=== PATIENT | female | born 1965 | race Caucasian/White ===

== ENCOUNTER 2017-08-18 11:38 | Emergency (ER) | payer OTHER ==
[~2017-08-18] VITALS: Ht 172.7 cm; Wt 73.9 kg
[2017-08-18 11:51] VITALS: BP 143/80
[2017-08-18 14:44] VITALS: BP 143/80
== END 2017-08-18 14:46 | disposition home or self-care (01) ==
LOC: MED 11:38
DX: N39.0 Urinary tract infection, site not specified (principal); L20.9 Atopic dermatitis, unspecified; E78.00 Pure hypercholesterolemia, unspecified
CPT/HCPCS: 99283

== ENCOUNTER 2017-10-07 13:36 | Emergency (ER) | payer OTHER ==
[~2017-10-07] VITALS: Ht 165.1 cm; Wt 79.4 kg
[2017-10-07 14:06] VITALS: BP 135/67
--- NOTE | 2017-10-07 14:27 | NUR ---
Patient to bed 01.
--- NOTE | 2017-10-07 14:28 | NUR ---
52/F BIB SISTER C/O RASHES & SWELLING TO R ABDOMEN, LOWER ABDOMEN , LFA & C/O COUGH , RUNNY NOSE & SORE THROAT X YESTERDAY. HX HYPERLIPIDEMIA, SURGERY TO RFA, HYSTERECTOMY. DENIES N/V/D; SKIN IS PINK/WARM/DRY; AAOX4 WITH EVEN AND STEADY GAIT; LUNGS CLEAR BL; PATIENT STATES PAIN OF 0/10 AT THIS TIME; PATIENT POSITIONED FOR COMFORT; HOB ELEVATED; BEDRAILS UP X2; BED DOWN. ER MD MADE AWARE OF PT STATUS.
[2017-10-07 15:19] VITALS: BP 106/72
--- NOTE | 2017-10-07 15:19 | NUR ---
Patient discharged with v/s stable. Written and verbal after care instructions given and explained. Patient alert, oriented and verbalized understanding of instructions. Ambulatory with steady gait. All questions addressed prior to discharge. ID band removed. Patient advised to follow up with PMD. Rx of KEFLEX,DIPHENHYDRALAMINE given. Patient educated on indication of medication including possible reaction and side effects. Opportunity to ask questions provided and answered.
== END 2017-10-07 15:19 | disposition home or self-care (01) ==
LOC: MED 13:36
DX: L03.311 Cellulitis of abdominal wall (principal)
CPT/HCPCS: 99283

== ENCOUNTER 2017-10-17 11:32 | Emergency (ER) | payer OTHER ==
[~2017-10-17] VITALS: Ht 167.6 cm; Wt 78.0 kg
[2017-10-17 11:59] VITALS: BP 119/66
--- NOTE | 2017-10-17 12:08 | NUR ---
Patient ambulated to bed 02.
--- NOTE | 2017-10-17 12:25 | NUR ---
PATIENT PRESENTS TO ED WITH C/O DIZZINESS FOR A COUPLE OF DAYS; DENIES N/V DENIES; RECURRING FIRM RAISED REDNESS AREAS/RASH , LEFT THIGH , LOWER BACK PAIN FOR 2 DAYS, HX OF HYPERLIPIDEMIA;HYSTERECTOMY;RX OF SIMVASTATING . SKIN IS PINK/WARM/DRY; AAOX4 WITH EVEN AND STEADY GAIT; LUNGS CLEAR BL; HR EVEN AND REGULAR; PT DENIES ANY FEVER, CP, SOB, OR COUGH AT THIS TIME; PATIENT STATES PAIN OF 0/10 AT THIS TIME;PATIENT POSITIONED FOR COMFORT; HOB ELEVATED; BEDRAILS UP X2; BED DOWN. ER MD MADE AWARE OF PT STATUS.
--- NOTE | 2017-10-17 12:40 | NUR ---
Dr. Ochoa evaluating patient at bedside.
[2017-10-17 12:52] VITALS: BP 129/80
--- NOTE | 2017-10-17 12:52 | NUR ---
Note undone in EDM - 10/17/17 at 1254 by MILA Patient discharged with v/s stable. Written and verbal after care instructions given and explained. Patient alert, oriented and verbalized understanding of instructions. Ambulatory with steady gait. All questions addressed prior to discharge. ID band removed. Patient advised to follow up with PMD. Rx of PREDNISONE, CIPRO AND BENADRYL given. Patient educated on indication of medication including possible reaction and side effects. Opportunity to ask questions provided and answered.
== END 2017-10-17 12:52 | disposition home or self-care (01) ==
LOC: MED 11:32
DX: R21 Rash and other nonspecific skin eruption (principal); N39.0 Urinary tract infection, site not specified; E78.5 Hyperlipidemia, unspecified; Z90.710 Acquired absence of both cervix and uterus
CPT/HCPCS: 81002; 81025; 99283

== ENCOUNTER 2019-06-11 10:24 | Emergency (ER) | payer MEDICAID, OTHER ==
[~2019-06-11] VITALS: Ht 172.7 cm; Wt 73.9 kg
[2019-06-11 10:32] VITALS: BP 136/84
--- NOTE | 2019-06-11 11:10 | NUR ---
C/O RIGHT ARM PAIN RADIATING FROM R ELBOW TO R WRIST X YESTERDAY. PT STATES SHE WAS HELPING HER DAUGHTER MOVE YESTERDAY AND SHE THINKS SHE MAY HAVE INJURED HER ARM IN THE PROCESS. PT IS UNABLE TO FULLY EXTEND HER R ARM DUE TO PAIN, + CMS. 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 PT DENIES HEARING A POP OR CRACKING SOUND, NO BRUISING OR OBVIOUS DEFORMITY OTHER THAN THE LIMITED ROM. PT IN BED IN LOW POSITION, SIDE RAIL UP X1, FRIEND AT BEDSIDE
--- NOTE | 2019-06-11 11:24 | NUR ---
Dr. Adams is evaluating the patient at bedside.
[2019-06-11] MEDS ORDERED: MORPHINE SULFATE 4 MG/ML SYR IM ONE (11:35)
[2019-06-11] MEDS ORDERED: KETOROLAC 60 MG/2 ML VIAL IM ONE (11:35)
--- NOTE | 2019-06-11 13:01 | NUR ---
4 inch orthoglass used to apply posterior long arm splint to right arm. Large sling was adjust and applied to patient. PMSC's assessed and wnl
[2019-06-11 13:32] VITALS: BP 126/68
== END 2019-06-11 13:31 | disposition home or self-care (01) ==
LOC: MED 10:24
DX: M79.601 Pain in right arm (principal); G89.29 Other chronic pain; M06.9 Rheumatoid arthritis, unspecified
CPT/HCPCS: 29105; 73090; 96372; 99283; J1885; J2270

== ENCOUNTER 2019-08-08 18:58 | Emergency (ER) | payer MEDICAID ==
[~2019-08-08] VITALS: Ht 172.7 cm; Wt 78.6 kg
[2019-08-08 19:06] VITALS: BP 143/85
[2019-08-08 20:53] LABS: BASOPHILS % (AUTO) 0.3 % (0.0-2.0); EOSINOPHILS # (AUTO) 0.3 K/uL (0-0.4); EOSINOPHILS % (AUTO) 3.9 % (0.0-4.0); HEMOGLOBIN 13.9 g/dL (12.0-16.0); LYMPHOCYTES # (AUTO) 1.8 K/uL (2.5-16.5); LYMPHOCYTES % (AUTO) 26.2 % (20.5-51.1); MEAN CORPUSCULAR HEMOGLOBIN 30 pg (27-31); MEAN CORPUSCULAR HGB CONC 34 g/dL (33-37); MEAN CORPUSCULAR VOLUME 89.3 fL (80-94); MONOCYTES # (AUTO) 0.4 K/uL (0.8-1.0); MONOCYTES % (AUTO) 5.5 % (1.7-9.3); NEUTROPHILS # (AUTO) 4.4 K/uL (1.8-7.7); NEUTROPHILS % (AUTO) 64.1 % (42.2-75.2); PLATELET COUNT (AUTO) 205 K/uL (140-450); RED CELL DISTRIBUTION WIDTH 13.8 % (11.6-13.7); WHITE BLOOD COUNT (AUTO) 6.8 K/uL (4.8-10.8)
[2019-08-08 21:19] LABS: ANION GAP 11.9 (8-16); CARBON DIOXIDE 27.6 mmol/L (21-32); CREATININE 0.9 mg/dL (0.6-1.3); POTASSIUM 4.5 mmol/L (3.5-5.1)
[2019-08-08 21:26] LABS: ALBUMIN 3.6 g/dL (3.4-5.0)
[2019-08-08 22:22] LABS: APPEARANCE,URINE CLEAR (CLEAR); BILIRUBIN,URINE NEGATIVE (NEGATIVE); BLOOD, URINE NEGATIVE (NEGATIVE); COLOR,URINE YELLOW (YELLOW); LEUKOCYTE ESTERASE ,URINE NEGATIVE (NEGATIVE); NITRITE, URINE NEGATIVE (NEGATIVE); UGLUCOSE NEGATIVE (NEGATIVE)
[2019-08-08] MEDS ORDERED: FAMOTIDINE 20 MG/2 ML VIAL IVP ONE (22:45)
[2019-08-08] MEDS ORDERED: MORPHINE SULFATE 4 MG/ML SYR IVP ONE ×2 (22:45→23:25)
[2019-08-08] MEDS ORDERED: ONDANSETRON 4 MG/2 ML VIAL IVP ONE (23:25)
[2019-08-09 01:14] VITALS: BP 129/79
== END 2019-08-09 01:14 | disposition home or self-care (01) ==
LOC: MED 18:58
DX: R10.13 Epigastric pain (principal); K92.1 Melena; E78.00 Pure hypercholesterolemia, unspecified; M06.9 Rheumatoid arthritis, unspecified
CPT/HCPCS: 36415; 76705; 80053; 81003; 82150; 83690; 84703; 85025; 96374; 96375; 96376; 99284; J2270; J2405; J3490; Q0092

== ENCOUNTER 2019-10-06 22:12 | Emergency (ER) | payer MEDICAID ==
[~2019-10-06] VITALS: Ht 172.7 cm; Wt 78.5 kg
[2019-10-06 22:40] VITALS: BP 156/84
--- NOTE | 2019-10-06 22:52 | NUR ---
TAKEN TO BED 02 VIA WC. REQUIRES WC ASSIST FOR PAIN. ESTRELLA ANDREWS MADE AWARE.
--- NOTE | 2019-10-06 23:27 | NUR ---
54 Y/O FEMALE PRESENTS TO ED WITH ABDOMINAL PAIN 08/31. PT STATES PAIN STARTED 3 WEEKS AGO AND WORSENING SINCE. DENIES ANY N/V/D AND CONSTIPATION. BS ACTIVE X4 QUADRANTS. ABDOMINAL PAIN RADIATES TO RIGHT FLANK; PAIN ON PALPATION. PT TOOK MOTRIN YESTERDAY WITH NO RELIEF. PT STABLE. ERMD AWARE. WILL CONTINUE TO MONITOR.
[2019-10-06] MEDS ORDERED: KETOROLAC 15 MG/ML VIAL IM ONE (23:40)
--- NOTE | 2019-10-06 23:49 | NUR ---
PT TAKE TO XRAY
[2019-10-07] MEDS ORDERED: HYDROcodone/APAP 5/325 MG 1 TAB TAB PO ONE (02:35)
[2019-10-07 02:55] VITALS: BP 152/71
--- NOTE | 2019-10-07 02:55 | NUR ---
PT DISCHARGED WITH PAPERWORK. RX TRAMADOL. EDUCATED PT REGARDING MEDICATION AND S/E. EDUCATED PT REGARDING D/C DIAGNOSIS AND INSTRUCTIONS. PT VERBALIZED UNDERSTANDING OF TEACHING. TOLD PT TO FOLLOW UP WITH PCP AND WHEN TO RETURN TO ED. PT VSS. ABLE TO AMBULATE WITH SLOW STEADY GAIT. ALL QUESTIONS ANSWERED.
== END 2019-10-07 02:55 | disposition home or self-care (01) ==
LOC: MED 22:12
DX: M54.41 Lumbago with sciatica, right side (principal)
CPT/HCPCS: 72110; 73502; 96372; 99283; J1885

== ENCOUNTER 2019-10-28 10:45 | Emergency (ER) | payer MEDICAID ==
[~2019-10-28] VITALS: Ht 172.7 cm; Wt 80.5 kg
[2019-10-28 10:48] VITALS: BP 145/82
[2019-10-28 11:30] LABS: BASOPHILS % (AUTO) 0.3 % (0.0-2.0); EOSINOPHILS # (AUTO) 0.2 K/uL (0-0.4); EOSINOPHILS % (AUTO) 3.5 % (0.0-4.0); HEMATOCRIT 42.3 % (36-48); HEMOGLOBIN 13.9 g/dL (12.0-16.0); LYMPHOCYTES # (AUTO) 1.7 K/uL (2.5-16.5); LYMPHOCYTES % (AUTO) 30.1 % (20.5-51.1); MEAN CORPUSCULAR HEMOGLOBIN 30 pg (27-31); MEAN CORPUSCULAR HGB CONC 33 g/dL (33-37); MONOCYTES # (AUTO) 0.4 K/uL (0.8-1.0); MONOCYTES % (AUTO) 7.9 % (1.7-9.3); NEUTROPHILS # (AUTO) 3.3 K/uL (1.8-7.7); NEUTROPHILS % (AUTO) 58.2 % (42.2-75.2); PLATELET COUNT (AUTO) 238 K/uL (140-450); RED BLOOD CELL COUNT(AUTO) 4.65 MIL/uL (4.20-5.40); RED CELL DISTRIBUTION WIDTH 13.7 % (11.6-13.7); WHITE BLOOD COUNT (AUTO) 5.7 K/uL (4.8-10.8)
--- NOTE | 2019-10-28 11:34 | NUR ---
Patient ambulated to bed 1. RN evaluating patient at bedside. Addendum: 10/28/19 at 1256 by BASIM Patient discharged with v/s stable. Written and verbal after care instructions given and explained. Patient verbalized understanding. Ambulatory with steady gait. All questions addressed prior to discharge. Advised to follow up with PMD.
[2019-10-28 11:40] LABS: ANION GAP 13.4 (8-16); CARBON DIOXIDE 26.4 mmol/L (21-32); CREATININE 0.9 mg/dL (0.6-1.3); POTASSIUM 3.8 mmol/L (3.5-5.1)
[2019-10-28 11:46] LABS: TOTAL BILIRUBIN 1.1 mg/dL (0.0-1.0)
--- NOTE | 2019-10-28 11:53 | NUR ---
Dr. Jay is evaluating the patient at bedside.
--- NOTE | 2019-10-28 12:11 | NUR ---
TO X-RAY. ASSESMENT PER FLOW SHEET. TO CONTINUE PLAN OF CARE.
[2019-10-28] MEDS: DICYCLOMINE HCL LIQUID 20 MG, ALUMINUM HYD/MAG/SIMETHICONE 30 ML, LIDOCAINE VISCOUS 2% ... PO ONE ×3 (12:25)
--- NOTE | 2019-10-28 12:26 | NUR ---
Patient discharged with v/s stable. Written and verbal after care instructions given and explained. Patient verbalized understanding. Ambulatory with steady gait. All questions addressed prior to discharge. Advised to follow up with PMD.
[2019-10-28 12:47] VITALS: BP 131/76
--- NOTE | 2019-10-28 12:48 | NUR ---
Patient discharged with v/s stable. Written and verbal after care instructions given and explained. Patient alert, oriented and verbalized understanding of instructions. Ambulatory with steady gait. All questions addressed prior to discharge. ID band removed. Patient advised to follow up with PMD. Rx of PRILOSEC given. Patient educated on indication of medication including possible reaction and side effects. Opportunity to ask questions provided and answered.
== END 2019-10-28 12:48 | disposition home or self-care (01) ==
LOC: MED 10:45
DX: K29.70 Gastritis, unspecified, without bleeding (principal); K21.9 Gastro-esophageal reflux disease without esophagitis; E78.00 Pure hypercholesterolemia, unspecified
CPT/HCPCS: 36415; 71046; 80053; 84484; 85025; 93005; 99284

== ENCOUNTER 2020-06-05 09:06 | Emergency (ER) | payer MEDICAID ==
[~2020-06-05] VITALS: Ht 172.7 cm; Wt 70.3 kg
[2020-06-05 09:11] VITALS: BP 135/78
--- NOTE | 2020-06-05 09:15 | NUR ---
PT WHEELED TO BED, 8.
--- NOTE | 2020-06-05 09:25 | NUR ---
54 Y/F PRESENTS TO ED C/O EPIGASTRIC PAIN SINCE YESTERDAY WITH NAUSEA AND VOMITING 1 EPISODE YESTERDAY. PT STATES SHE HAS BEEN TAKING PEPCID WITH NO RELIEF. PT STATES SHE HAS STOMACH ULCERS AND BELIEVES THE PAIN IS RELATED TO THAT. PT DENIES SPICY OR FRIED FOOD. PT REPORTS 10/10 EPIGASTRIC SHARP PAIN THAT RADIATES THROUGOUT UPPER ABD. PT DENIES DIARRHEA, DENEIS FEVER, REPORTS CONSTIPATION, LAST BM X 1 DAY, SMALL AND HARD. ABD TENDER TO PALPATION, SOFT, BS ACTIVE X 4, DENIES DYSURIA. SKIN WARM AND DRY TO TOUCH. NO PMH NKA
--- NOTE | 2020-06-05 09:28 | NUR ---
DR. VASQUEZ AT BEDSIDE EVALUATING PT.
[2020-06-05] MEDS ORDERED: NACL 0.9% 500 ML IV ONE (09:30)
[2020-06-05] MEDS ORDERED: PANTOPRAZOLE 40 MG INJ VIAL IVP ONE (09:30)
[2020-06-05] MEDS ORDERED: ONDANSETRON 4 MG/2 ML VIAL IVP ONE (09:30)
[2020-06-05] MEDS ORDERED: KETOROLAC 30 MG/ML VIAL IVP ONE (09:30)
[2020-06-05 09:49] LABS: BASOPHILS # (AUTO) 0.1 K/uL (0.00-0.22); BASOPHILS % (AUTO) 1.1 % (0.0-2.0); EOSINOPHILS # (AUTO) 0.1 K/uL (0-0.4); EOSINOPHILS % (AUTO) 0.9 % (0.0-4.0); HEMATOCRIT 43.6 % (36-48); HEMOGLOBIN 14.5 g/dL (12.0-16.0); LYMPHOCYTES # (AUTO) 1.1 K/uL (2.5-16.5); LYMPHOCYTES % (AUTO) 17.1 % (20.5-51.1); MEAN CORPUSCULAR HEMOGLOBIN 31 pg (27-31); MEAN CORPUSCULAR HGB CONC 33 g/dL (33-37); MEAN CORPUSCULAR VOLUME 92.3 fL (80-94); MONOCYTES # (AUTO) 0.3 K/uL (0.8-1.0); MONOCYTES % (AUTO) 5.2 % (1.7-9.3); NEUTROPHILS % (AUTO) 75.7 % (42.2-75.2); PLATELET COUNT (AUTO) 216 K/uL (140-450); RED BLOOD CELL COUNT(AUTO) 4.72 MIL/uL (4.20-5.40); RED CELL DISTRIBUTION WIDTH 13.7 % (11.6-13.7); WHITE BLOOD COUNT (AUTO) 6.6 K/uL (4.8-10.8)
--- NOTE | 2020-06-05 09:50 | NUR ---
LAB AT BEDSIDE.
[2020-06-05 10:06] LABS: ALBUMIN 4.1 g/dL (3.4-5.0); ANION GAP 17.1 (8-16); CARBON DIOXIDE 24.7 mmol/L (21-32); CREATININE 1.1 mg/dL (0.6-1.3); POTASSIUM 3.8 mmol/L (3.5-5.1); TOTAL BILIRUBIN 2.8 mg/dL (0.0-1.0)
--- NOTE | 2020-06-05 10:20 | NUR ---
US AT BEDSIDE.
--- NOTE | 2020-06-05 10:43 | NUR ---
PT RESTING IN BED, EYES CLOSED, RR EVEN AND UNLABORED.
--- NOTE | 2020-06-05 11:12 | NUR ---
PT REPORTS 9/10 PAIN, PER PTS REQUEST ASKED ERMD FOR PAIN RX.
[2020-06-05] MEDS ORDERED: MORPHINE SULFATE 2 MG/ML SYR IVP ONE (11:15)
--- NOTE | 2020-06-05 12:15 | NUR ---
NADR, PT REPORTS DECREASED PAIN 4/10.
[2020-06-05] MEDS ORDERED: cefTRIAXone 1,000 MG VIAL ONE (12:43)
--- NOTE | 2020-06-05 12:55 | NUR ---
DR. VASQUEZ AT BEDSIDE INFORMING PT OF PT TRANSFER TO [facility].
--- NOTE | 2020-06-05 13:03 | NUR ---
ATTEMPTED TO CALL IGLESIA FULLER AT [facility], NO ANSWER AND UNABLE TO LEAVE MESSAGE WILL FOLLOW UP.
--- NOTE | 2020-06-05 13:12 | NUR ---
CALLED [facility] AND LEFT A VOICEMAIL FOR KULDEEP PAREKH TO RETURN CALL FOR PT REPORT.
--- NOTE | 2020-06-05 13:15 | NUR ---
PT MOVED TO BED 07
[2020-06-05 14:04] VITALS: BP 129/80
--- NOTE | 2020-06-05 14:05 | NUR ---
Patient to be transferred to [facility]. Is being transferred due to INSURANCE. Receiving facility has accepting physician and available space. ER physician has signed transfer form. Patient or responsible republican has agreed to transfer and signed form. Patient belongings inventoried and will be sent with patient. Copy of nursing notes, lab reports, EKG, Physicians Orders and X-rays to be sent with patient. Report called to CHARGE NURSE at receiving facility. [facility] ambulance service has been called for transfer.
--- NOTE | 2020-06-05 14:10 | NUR ---
GAVE REPORT TO IGLESIA - TOWEL DISTRIBUTOR
== END 2020-06-05 14:05 | disposition short-term general hospital (02) ==
LOC: MED 09:06
DX: K85.10 Biliary acute pancreatitis without necrosis or infection (principal); M54.9 Dorsalgia, unspecified; R11.2 Nausea with vomiting, unspecified; K21.9 Gastro-esophageal reflux disease without esophagitis; Z98.890 Other specified postprocedural states
CPT/HCPCS: 36415; 76705; 80053; 83690; 85025; 96361; 96365; 96375; 99285; C9113; J0696; J1885; J2270; J2405; J7030; Q0092

== ENCOUNTER 2023-10-03 17:40 | Emergency (ER) | payer MEDICAID ==
[~2023-10-03] VITALS: Ht 172.7 cm; Wt 74.8 kg
[~2023-10-03 17:40] MED LIST: ATOR40TA PO; DEXA6TAB1 PO; VITC500 PO; ZINC220C28 PO
[2023-10-03 18:30] VITALS: BP 138/68; PULSE 79; RESP 18; TEMP 97.8; O2SAT 97
[2023-10-03] MEDS ORDERED: MORPHINE SULFATE 4 MG/ML SYR IM ONE (20:20)
[2023-10-03] MEDS ORDERED: HYDROcodone/APAP 5/325 MG 1 TAB TAB PO ONE ×2 (20:45→21:15)
[2023-10-03] MEDS ORDERED: LIDOCAINE MPF 1% 10 MG/ML VIAL INJ ONE (20:45)
[2023-10-03] MEDS ORDERED: LIDOCAINE MPF 1% 5 ML ONE (21:03)
[2023-10-03] MEDS ORDERED: IBUP-2213 PO ×2 (22:44→22:58)
[2023-10-03] MEDS ORDERED: ACET-5629 PO ×2 (22:44→22:58)
[2023-10-03 22:58] VITALS: PULSE 91; RESP 17; O2SAT 97
== END 2023-10-03 22:55 | disposition home or self-care (01) ==
LOC: MED 17:40
DX: S52.532A Colles' fracture of left radius, initial encounter for closed fracture (principal); S52.692A Other fracture of lower end of left ulna, initial encounter for closed fracture; W18.30XA Fall on same level, unspecified, initial encounter; Y93.51 Activity, roller skating (inline) and skateboarding; Y92.89 Other specified places as the place of occurrence of the external cause; Y99.8 Other external cause status
CPT/HCPCS: 25605; 73090; 73110; 99284; J2001; Q0092

== ENCOUNTER 2024-07-22 14:33 | Emergency (ER) | payer MEDICAID ==
[~2024-07-22] VITALS: Ht 168.3 cm; Wt 79.8 kg
[~2024-07-22 14:33] MED LIST changes: +ACET-5629 PO; +IBUP-2213 PO
[2024-07-22 14:50] VITALS: BP 148/87; PULSE 74; RESP 17; TEMP 98.9; O2SAT 97
[2024-07-22 15:48] LABS: APPEARANCE,URINE CLEAR (CLEAR); BILIRUBIN,URINE NEGATIVE (NEGATIVE); BLOOD, URINE NEGATIVE (NEGATIVE); COLOR,URINE YELLOW (YELLOW); LEUKOCYTE ESTERASE ,URINE NEGATIVE (NEGATIVE); NITRITE, URINE NEGATIVE (NEGATIVE); PROTEIN,URINE NEGATIVE (NEGATIVE); UGLUCOSE NEGATIVE (NEGATIVE); UROBILINOGEN,URINE 0.2 EU/dL (0.2 - 1)
[2024-07-22 16:19] VITALS: BP 148/87; PULSE 74; RESP 17; TEMP 98.9; O2SAT 97
== END 2024-07-22 16:19 | disposition home or self-care (01) ==
LOC: MED 14:33
DX: N76.0 Acute vaginitis (principal); J45.909 Unspecified asthma, uncomplicated; I10 Essential (primary) hypertension; Z79.899 Other long term (current) drug therapy
CPT/HCPCS: 81003; 81025; 99283